=== PATIENT | female | born 1990 | race Two or more races ===

== ENCOUNTER → 2016-10-29 | Outpatient (REF) | payer OTHER | LOC: M SFHCLERA 13:38 | PROVIDERS: ATTEND Physician Assistant | DX: J02.9 Acute pharyngitis, unspecified (principal) ==

== ENCOUNTER 2016-12-22 11:58 | Inpatient (IN) | payer OTHER ==
[2016-12-22] VITALS (13 sets, daily range): BP systolic 100–126; BP diastolic 58–76
[~2016-12-22] VITALS: Ht 165.1 cm; Wt 74.0 kg
[2016-12-22] MEDS ORDERED: LR 1,000 ML IV SCH (13:00)
[2016-12-22] MEDS ORDERED: OXYTOCIN DRIP 30 UNITS in APPROPRIATE DILUENT 1 EA IV SCH ×2 (13:00→16:23)
[2016-12-22] MEDS ORDERED: BUTORPHANOL 2 MG/ML INJ (J0595) IV ONE (13:30)
[2016-12-22] MEDS ORDERED: PROMETHAZINE INJ 25 MG/ML VIAL (J2550) IV ONE (13:30)
[2016-12-22 14:54] LABS: MEAN CORPUSCULAR HEMOGLOBIN 31.6 pg (27.0-33.0); MEAN CORPUSCULAR HGB CONC 34.9 g/dl (32.0-36.5); MEAN CORPUSCULAR VOLUME 90.5 fl (80.0-96.0); RED CELL DISTRIBUTION WIDTH 13.5 % (11.5-14.5); WHITE BLOOD COUNT 12.3 K/mm3 (4.0-10.0)
[2016-12-22] MEDS ORDERED: IBUPROFEN 800 MG TAB PO PRN (16:30)
[2016-12-22] MEDS ORDERED: LIDOCAINE 1% MDV INJ 50 ML VIAL INFIL ONE (16:30)
[2016-12-22] MEDS ORDERED: PROMETHAZINE 25 MG TAB PO PRN (16:30)
[2016-12-22] MEDS ORDERED: METHYLERGONOVINE MALEATE 0.2 MG/ML VIAL (J2210) IM PRN (16:30)
[2016-12-22] MEDS ORDERED: RHOGAM 300 MCG (1500 IU) INJ (J2790) IM SCH (16:30)
[2016-12-22] MEDS ORDERED: DIBUCAINE 1% OINTMENT 30GM TOP PRN (16:30)
[2016-12-22] MEDS ORDERED: MEASLES,MUMPS,RUBELLA VACCINE INJ (MMR-II) (90707) SC SCH (16:30)
[2016-12-22] MEDS ORDERED: ACETAMINOPHEN 500 MG TAB PO PRN (16:30)
[2016-12-22] MEDS ORDERED: ONDANSETRON 4MG/2ML VIAL (J2405) IV PRN (16:30)
[2016-12-22] MEDS: DOCUSATE SODIUM 100 MG CAP PO SCH (21:18)
[2016-12-23 05:34] VITALS: BP 100/55
[2016-12-23] MEDS: PRENATAL VITAMINS CHEWABLE TABLET PO SCH (08:47)
[2016-12-23] MEDS: DOCUSATE SODIUM 100 MG CAP PO SCH ×2 (08:47→21:12)
[2016-12-23 17:44] VITALS: BP 115/64
[2016-12-24 06:00] VITALS: BP 110/55
--- NOTE | 2016-12-24 08:12 | IPN ---
DATE: 12/22/2016 This a 26-year-old 1, at 41 weeks of gestation, admitted in late term induction of labor. She progressed the normal usual fashion without epidural or Pitocin, delivered a live female infant weighing 6 pounds 14 ounces, 3114 grams, of 8 and 9 at 1 and 5 minutes respectively. She had a first-degree laceration left labial laceration which was repaired in the usual fashion. On her first day, we discussed phlebitis, cystitis, mastitis, metritis and cellulitis, diet, exercise pain management, perineal breast and wound care. Admitting hemoglobin 13.1, hematocrit 37.6 and platelets were 193. Vital signs today blood pressure 100/55, respirations 18, pulse 52, temperature is 98.6. The rest of the examination is unremarkable. She is normocephalic, atraumatic. Neck is full range of motion. Pupils equal and reactive to light. Distal pulses symmetric. No evidence of deep vein thrombosis (DVT) , pulmonary embolus (PE) or superficial phlebitis. Lungs are clear bilaterally at the bases. No wheezes or rhonchi. No costovertebral angle (CVA) tenderness. Uterus two below. Lochia is moderate. Four quadrant bowel sounds and perineum is healing. She has no rashes, lesions or pruritus. No arthralgia or myalgia. Not complaining of cough, wheeze, shortness of breath or dyspnea on exertion. No chest pain. Not bleeding. Neuro complete. No incontinency, urgency or frequency. No nausea, vomiting, diarrhea or constipation In summary, have a late term gestation, delivered a live female . Plans on discharge for tomorrow with medications to be given at discharge and 6 weeks checkup with [facility].
[2016-12-24] MEDS: DOCUSATE SODIUM 100 MG CAP PO SCH (08:41)
[2016-12-24] MEDS: PRENATAL VITAMINS CHEWABLE TABLET PO SCH (08:42)
[2016-12-24] MEDS ORDERED: COLA100C5 PO (11:31)
[2016-12-24] MEDS ORDERED: ACET50TA PO (11:31)
[2016-12-24] MEDS ORDERED: PRENTAB9 PO (11:31)
--- NOTE | 2016-12-25 13:23 | DSES ---
DATE OF ADMISSION: 12/22/2016 DATE OF DISCHARGE: 12/24/2016 This lady is 26-year-old 1, admitted for induction of labor at 41 weeks of gestation, spontaneous vaginal delivery without epidural, 6 pounds 14 ounces, 3114 grams. scores of 8 and 9 at one and five minutes, respectively. She had a first-degree tear and a left labial laceration, which was repaired. Her past risk factor is she had gastric bypass. Her hemoglobin on discharge 13.1, hematocrit 37.6, platelets are 193. Vital signs: Her blood pressure is 110/55, respirations 18, pulse 48, temperature 97.8. We discussed phlebitis, cystitis, mastitis, metritis, cellulitis, diet, exercise, pain management, perineal breast and wound care. On discharge, she is normocephalic, atraumatic. Neck: Full range of motion. Pupils equal and reactive to light. Distal pulses symmetric. No evidence of deep vein thrombosis (DVT), pulmonary embolism (PE), or superficial phlebitis. The lungs are clear bilaterally to bases. No wheezes or rhonchi. Uterus is 2 below. Lochia is moderate. Four-quadrant bowel sounds are noted. She has no rashes, lesions, or pruritus. No arthralgia, myalgia. No complaint of cough, wheezes, shortness of breath, or dyspnea on exertion. No chest pain. No bleeding. Neurologic complete. No incontinency, urgency, or frequency. No nausea, vomiting, diarrhea, constipation. No diabetic issues. She does not smoke, drink, or abuse drugs. There is no domestic violence. She is to a soldier. In summary, we have a term gestation delivered a live- female infant to be discharged with medications and a 6-week checkup.
== END 2016-12-24 12:50 | disposition home or self-care (01) | DRG 775 ==
LOC: M LDI 11:58 → M OBS 18:05
PROVIDERS: ADMIT Obstetrics & Gynecology; ATTEND Obstetrics & Gynecology
PROC: 10E0XZZ Delivery of Products of Conception, External Approach (ICD-10-PCS; principal; 2016-12-22)
PROC: 0HQ9XZZ Repair Perineum Skin, External Approach (ICD-10-PCS; 2016-12-22)
PROC: 3E033VJ Introduction of Other Hormone into Peripheral Vein, Percutaneous Approach (ICD-10-PCS; 2016-12-22)
DX: O48.0 Post-term pregnancy (principal); O99.844 Bariatric surgery status complicating childbirth; Z3A.41 41 weeks gestation of pregnancy; O70.0 First degree perineal laceration during delivery; Z37.0 Single live birth